=== PATIENT | female | born 1955 | race African-American/Black ===

== ENCOUNTER → 2016-12-09 | Outpatient (CLI) | payer OTHER ==
[2014-03-12 11:26] VITALS: BP 147/99
[2016-12-09 07:55] LABS: CALCIUM 9.8 mg/dL (8.5-10.1); GFR 68.4; POTASSIUM 3.8 mmol/L (3.5-5.1)
[2016-12-09 07:58] LABS: CHOLESTEROL/HDL RATIO 5.7
== END | disposition home or self-care (01) ==
LOC: LAB 06:27
PROVIDERS: ATTEND Family Medicine
DX: E11.9 Type 2 diabetes mellitus without complications (principal); E78.5 Hyperlipidemia, unspecified; E01.0 Iodine-deficiency related diffuse (endemic) goiter
CPT/HCPCS: 36415; 80048; 80061; 83036; 84443

== ENCOUNTER → 2017-04-13 | Outpatient (CLI) | payer OTHER ==
[2014-03-12 11:26] VITALS: BP 147/99
--- NOTE | 2017-04-13 16:03 | RAD ---
DATE: 04/13/2017 EXAM: DIGITAL SCREEN BILAT W/CAD HISTORY: Screening study. COMPARISON: 03/12/2014 and 03/04/2014 This study was interpreted with the benefit of Computerized Aided Detection (CAD). The breast parenchyma shows scattered fibroglandular densities. Breast parenchyma level B. FINDINGS: Digital MLO and CC mammograms of both breasts were obtained. Comparison studies are dated 03/04/2014 and 03/12/2014. The breast parenchyma is composed of scattered fibroglandular densities which can obscure a lesion on mammography (breast density code B). No spiculated mass is seen. No malignant appearing calcification or area of architectural distortion is noted. Benign-appearing calcifications are seen within both breasts. Since the previous examinations there has been no significant interval change. IMPRESSION: BI-RADS Category 1, negative. There is no mammographic evidence of malignancy. Routine yearly screening mammography is recommended for follow-up. BI-RADS CATEGORY: 1 NEGATIVE RECOMMENDED FOLLOW-UP: 12M 12 MONTH FOLLOW-UP PQRS compliance statement: Patient information was entered into a reminder system with a target due date 04/13/2018 for the next mammogram. Mammography is a sensitive method for finding small breast cancers, but it does not detect them all and is not a substitute for careful clinical examination. A negative mammogram does not negate a clinically suspicious finding and should not result in delay in biopsying a clinically suspicious abnormality. "Our facility is accredited by the [employer] Mammography Program."
== END | disposition home or self-care (01) ==
LOC: MAMMO 07:02
PROVIDERS: ATTEND Specialist
DX: Z12.31 Encounter for screening mammogram for malignant neoplasm of breast (principal); E11.9 Type 2 diabetes mellitus without complications
CPT/HCPCS: 36415; 82043; 83036; G0202; 77067

== ENCOUNTER 2017-04-30 07:42 | Inpatient (IN) | payer OTHER ==
[~2017-04-30] VITALS: Ht 170.2 cm; Wt 84.1 kg
--- NOTE | 2017-04-30 07:57 | EKG ---
[facility] [address] [place] [address] Test Date: 2017-04-30 Test Time: 07:46:53 Pat Name: REECE CAT Department: Room: Gender: F Human Projectile: : 1955 Requested By: TIGIST MARTINEZ Order Number: [id number] Reading MD: Hussein Liu Measurements Intervals [place] Rate: 58 P: 59 [place]: 186 QRS: 36 QRSD: 72 T: 43 QT: 408 QTc: 400 Interpretive Statements SINUS RHYTHM Electronically Signed On 05-01-2017 13:17:13 CDT by Hussein Liu
[2017-04-30 08:24] LABS: BASO # 0.1 x10^3/uL (0.0-0.2); BASO % 1 % (0-3); EOS % 2 % (0-3); HEMATOCRIT 39.4 % (36.0-47.0); HEMOGLOBIN 12.9 g/dL (12.0-15.5); LYMPH # 2.8 x10^3/uL (1.0-4.8); LYMPH % 35 % (24-48); MEAN CORPUSCULAR HEMOGLOBIN 28 pg (25-35); MEAN CORPUSCULAR HGB CONC 33 g/dL (31-37); MEAN CORPUSCULAR VOLUME 85 fL (79-100); MONO % 8 % (0-9); NEUT % 54 % (31-73); PLATELET COUNT 214 x10^3/uL (140-400); RED BLOOD COUNT 4.62 x10^6/uL (3.50-5.40); RED CELL DISTRIBUTION WIDTH 13.7 % (11.5-14.5)
--- NOTE | 2017-04-30 08:29 | RAD ---
Chest radiograph 04/30/2017 9:49 AM Indication: Syncope Comparison: None available Technique: Single portable upright frontal view of the chest is provided. Findings: Cardiomediastinal silhouette is within normal limits. No pleural effusions, pulmonary vascular congestion or pneumothorax. The lungs are clear. Osseous structures are normal. Impression: No acute cardiopulmonary process.
[2017-04-30 08:40] LABS: CALCIUM 9.2 mg/dL (8.5-10.1); GFR 68.4; POTASSIUM 3.7 mmol/L (3.5-5.1)
--- NOTE | 2017-04-30 08:45 | ED.ADGEN ---
Adult General Chief Complaint Chief Complaint: LOSS OF CONSCIOUSNESS HPI HPI Patient is a 61 year old woman, history of hypertension, hypercholesterolemia, type 2 diabetes mellitus that is diet controlled, who presents to the emergency department with report of syncope. 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 She states that she tried drinking some water, and then felt progressively more hot and lightheaded, and eventually dizzy as though the room is been around her. She states she sat down, but the symptoms did not saji. She states that she then attempted to stand up to move closer to the other drilling rig operator, at that point she had a single episode where she fell forward, and was ascending a chair. Patient states that she was out for only a few seconds at best, states that she then vomited, and felt better after she vomited. No blood or bile in emesis. Patient denies any chest pain, shortness breath, any fevers or chills preceding this, any abdominal pain, any focal weakness, numbness, tingling, vision changes , headache or similar symptoms previously. She denies any medication changes, missed doses of medication, or recent adjustments, no swelling extremities, no history of DVT or PE in herself or family members, no recent travel or surgery. Patient states that she has been compliant all medications, denies any ingestions or sick contacts or exposures. Review of Systems Review of Systems Constitutional: Denies fever or chills. [] Eyes: Denies change in visual acuity. [] HENT: Denies nasal congestion or sore throat. [] Respiratory: Denies cough or shortness of breath. [] Cardiovascular: Denies chest pain or edema. [] GI: Denies abdominal pain, bloody stools or diarrhea. [] Dizziness associated with nausea and vomiting. Syncope. : Denies dysuria. [] Musculoskeletal: Denies back pain or joint pain. [] Integument: Denies rash. [] Neurologic: Denies headache, focal weakness or sensory changes. Syncope, dizziness, nausea and vomiting. Endocrine: Denies polyuria or polydipsia. [] Lymphatic: Denies swollen glands. [] Psychiatric: Denies depression or anxiety. Current Medications Current Medications Current Medications Medications (Trade) Dose Ordered Sig/Kavitha Start Time Stop Time Status Last Admin Dose Admin Iohexol (Omnipaque 300 Mg/ml) 75 ml STK-MED ONCE 04/30/17 09:55 04/30/17 09:56 DC Allergies Allergies Allergies Coded Allergies Type Severity Reaction Last Updated Verified No Known Drug Allergies 03/12/14 No Physical Exam Physical Exam Constitutional: Well developed, well nourished, no acute distress, non-toxic appearance. [] HENT: Normocephalic, atraumatic, bilateral external ears normal, oropharynx moist, no oral exudates, nose normal. [] Eyes: PERRLA, EOMI, conjunctiva normal, no discharge. [] Neck: Normal range of motion, no tenderness, supple, no stridor. [] Cardiovascular:Heart rate regular rhythm, no murmur, S1, S2, rubs or gallops. [] Lungs & Thorax: Bilateral breath sounds clear to auscultation, no wheezing, rhonchi, rales. No chest wall crepitus or tenderness. Abdomen: Bowel sounds normal, soft, no tenderness, no masses, no pulsatile masses. [] Skin: Warm, dry, no erythema, no rash. [] Back: No tenderness, no CVA tenderness. [] Extremities: No tenderness, no cyanosis, no clubbing, ROM intact, no edema. Negative Homans sign. [] Neurologic: Alert and oriented X 3, normal motor function, normal sensory function, no focal deficits noted. 5 out of 5 strength in all extremities, no focal deficits. Psychologic: Affect normal, judgement normal, mood normal. [] Current Patient Data Vital Signs Vital Signs Date Time Temp Pulse Resp B/P (MAP) Pulse Ox O2 Delivery O2 Flow Rate FiO2 04/30/17 09:30 62 16 99 04/30/17 07:42 97.6 136/86 (103) Room Air 97.6 Lab Values Laboratory Tests Test 04/30/17 07:57 04/30/17 08:05 04/30/17 08:15 04/30/17 08:30 Glucose (Fingerstick) 134 mg/dL (70-99) H White Blood Count 8.0 x10^3/uL (4.0-11.0) Red Blood Count 4.62 x10^6/uL (3.50-5.40) Hemoglobin 12.9 g/dL (12.0-15.5) Hematocrit 39.4 % (36.0-47.0) Mean Corpuscular Volume 85 fL (79-100) Mean Corpuscular Hemoglobin 28 pg (25-35) Mean Corpuscular Hemoglobin Concent 33 g/dL (31-37) Red Cell Distribution Width 13.7 % (11.5-14.5) Platelet Count 214 x10^3/uL (140-400) Neutrophils (%) (Auto) 54 % (31-73) Lymphocytes (%) (Auto) 35 % (24-48) Monocytes (%) (Auto) 8 % (0-9) Eosinophils (%) (Auto) 2 % (0-3) Basophils (%) (Auto) 1 % (0-3) Neutrophils # (Auto) 4.3 x10^3uL (1.8-7.7) Lymphocytes # (Auto) 2.8 x10^3/uL (1.0-4.8) Monocytes # (Auto) 0.7 x10^3/uL (0.0-1.1) Eosinophils # (Auto) 0.2 x10^3/uL (0.0-0.7) Basophils # (Auto) 0.1 x10^3/uL (0.0-0.2) D-Dimer (Angelic) 0.61 ug/mlFEU (0.00-0.50) H Sodium Level 141 mmol/L (136-145) Potassium Level 3.7 mmol/L (3.5-5.1) Chloride Level 105 mmol/L (98-107) Carbon Dioxide Level 28 mmol/L (21-32) Anion Gap 8 (6-14) Blood Urea Nitrogen 18 mg/dL (7-20) Creatinine 1.0 mg/dL (0.6-1.0) Estimated GFR (Cockcroft-Gault) 68.4 BUN/Creatinine Ratio 18 (6-20) Glucose Level 139 mg/dL (70-99) H Calcium Level 9.2 mg/dL (8.5-10.1) Total Bilirubin 0.2 mg/dL (0.2-1.0) Aspartate Amino Transferase (AST) 15 U/L (15-37) Alanine Aminotransferase (ALT) 28 U/L (14-59) Alkaline Phosphatase 95 U/L (46-116) Troponin I Quantitative 0.090 ng/mL (0.000-0.055) YH-Zna-E-Type Natriuretic Peptide 65 pg/mL (0-124) Total Protein 7.5 g/dL (6.4-8.2) Albumin 3.8 g/dL (3.4-5.0) Albumin/Globulin Ratio 1.0 (1.0-1.7) Lactic Acid Level 0.9 mmol/L (0.4-2.0) Prothrombin Time 12.5 SEC (11.7-14.0) Prothrombin Time INR 1.0 (0.8-1.1) PTT 30 SEC (24-38) Test 04/30/17 09:45 Urine Collection Type Void Urine Color Yellow Urine Clarity Cloudy Urine pH 6.0 Urine Specific [place] 1.020 Urine Protein Negative mg/dL (NEG-TRACE) Urine Glucose (UA) Negative mg/dL (NEG) Urine Ketones (Stick) Negative mg/dL (NEG) Urine Blood Negative (NEG) Urine Nitrite Negative (NEG) Urine Bilirubin Negative (NEG) Urine Urobilinogen Dipstick 1.0 mg/dL (0.2 mg/dL) Urine Leukocyte Esterase Negative (NEG) Urine RBC 0 /HPF (0-2) Urine WBC 1-4 /HPF (0-4) Urine Squamous Epithelial Cells Mod /LPF Urine Bacteria Moderate /HPF (0-FEW) Urine Mucus Mod /LPF Laboratory Tests 04/30/17 08:05 Laboratory Tests 04/30/17 08:05 EKG EKG EC: Sinus rhythm, upright axis, QTC of 400, AL 186, QRS of 72, [address] elevation noted in the septal leads, no reciprocal changes noted, abnormal ECG, does not meet STEMI criteria. As interpreted by me. Radiology/Procedures Radiology/Procedures [][facility] [address] [place], [place] [id number] IMAGING REPORT Signed PATIENT: REECE CAT ACCOUNT: [id number] : 1955 LOCATION: ER AGE: 61 SEX: F EXAM STATUS: REG ER ORD. PHYSICIAN: TIGIST MARTINEZ DO REASON: Syncope PROCEDURE: CT HEAD WO CONTRAST CT head without contrast 04/30/2017 at 1008 hours Indication: Syncope Comparison: None available Technique: Multiple axial noncontrast CT images of the head were obtained from the skull base through the vertex. Findings: The ventricles, sulci and basal cisterns are within normal limits. Low-attenuation in the periventricular white matter is compatible with chronic small vessel ischemic changes. Remote lacunar infarct identified in the right cerebellum. Celaya-white matter differentiation is normal. There is no acute intracranial hemorrhage. There is no mass, mass effect or midline shift. Posterior fossa is within normal limits. Sellar and suprasellar cistern appear normal. Vascular calcifications are identified involving the cavernous segments of the internal carotid arteries. Orbits are normal in appearance. Paranasal sinuses are well aerated. Mastoid air cells are well aerated. Scalp and calvaria are normal. Impression: There is no acute intracranial hemorrhage. Mild chronic small vessel ischemic changes are noted in the periventricular white matter. Remote lacunar infarct identified in the right cerebellum. PQRS Compliance Statement: One or more of the following individualized dose reduction techniques were utilized for this examination: 1. Automated exposure control 2. Adjustment of the mA and/or kV according to patient size 3. Use of iterative reconstruction technique DICTATED and SIGNED BY: STARLA LAZO MD DATE: 04/30/17 1029 CC: QUINCY BAUTISTA MD; TIGIST MARTINEZ DO ~ Impressions: [facility] [address] [place] [address] IMAGING REPORT Signed PATIENT: REECE CAT ACCOUNT: [id number] : 1955 LOCATION: ER AGE: 61 SEX: F EXAM STATUS: REG ER ORD. PHYSICIAN: TIGIST MARTINEZ DO REASON: Syncope PROCEDURE: PORTABLE CHEST 1V Chest radiograph 04/30/2017 9:49 AM Indication: Syncope Comparison: None available Technique: Single portable upright frontal view of the chest is provided. Findings: Cardiomediastinal silhouette is within normal limits. No pleural effusions, pulmonary vascular congestion or pneumothorax. The lungs are clear. Osseous structures are normal. Impression: No acute cardiopulmonary process. DICTATED and SIGNED BY: STARLA LAZO MD DATE: 04/30/17825 CC: TIGIST MARTINEZ DO; UNKNOWN PCP NAME ~ [facility] [address] [place] [address] IMAGING REPORT Signed PATIENT: REECE CAT ACCOUNT: [id number] : 1955 LOCATION: ER AGE: 61 SEX: F EXAM STATUS: REG ER ORD. PHYSICIAN: TIGIST MARTINEZ DO REASON: Syncope/elevated ddimer PROCEDURE: CT ANGIOGRAPHY CHEST PQRS Compliance St with contrast 04/30/2017 at 1012 hours Indication: Syncope, elevated d-dimer Comparison: None available Technique: Multiple axial CT images of the chest were obtained after the administration of Omnipaque 300 75 mL intravenously. Coronal and sagittal reformats are provided. Maximum intensity projected images of the pulmonary vasculature are provided. Findings: Thyroid gland is enlarged with a peripherally calcified nodule measuring 18 mm. There are no pathologically enlarged lymph nodes in the axilla, mediastinal or hilar regions. Heart size is within normal limits. Thoracic aorta is normal in course and caliber. No pericardial effusion. There is adequate opacification of pulmonary arterial system. No filling defects are identified to suggest an acute pulmonary embolism. There are no suspicious pulmonary nodules. No pulmonary infiltrates. No pulmonary vascular congestion, pleural effusions or pneumothorax. Visualized portions of the upper abdomen are within normal limits. No suspicious osseous lesions are identified. Impression: 1. No acute pulmonary emphysema is identified. 2. Enlarged thyroid gland with a peripherally calcified 18 mm nodule in the right thyroid gland. Further evaluation with thyroid ultrasound would be of benefit. PQRS Compliance Statement: One or more of the following individualized dose reduction techniques were utilized for this examination: 1. Automated exposure control 2. Adjustment of the mA and/or kV according to patient size 3. Use of iterative reconstruction technique DICTATED and SIGNED BY: STARLA LAZO MD DATE: 04/30/171034 CC: QUINCY BAUTISTA MD; TIGIST MARTINEZ DO ~ Course & Med Decision Making Course & Med Decision Making Pertinent Labs and Imaging studies reviewed. (See chart for details) Patient states that she is feeling much better at this time the emergency department, syncope versus near-syncope, with an episode of emesis. No chest pain or shortness of breath. No focal deficits. Initial ECG does not reveal any evidence of reciprocal changes, does have mild ST elevation noted in the anterior septal leads, initial troponin is 0.090. D-dimer is elevated at 0.61, CT angios the chest obtained after discussion with patient regarding concern for possible PE as cause, the CT was unremarkable as was a CT of the head. Patient received a full dose of oral aspirin. I did discuss findings as above with Dr. Bautista, the patient's primary care provider, patient accepted his service as a full admission to the cardiac telemetry floor, with consultation placed for Dr. Umaña of cardiology. Patient is agreeable for admission to the hospital for further evaluation and monitoring. She remains asymptomatic resting comfortably in the emergency department. Findings as above discussed with Dr. Umaña, who will evaluate the patient on the floor. Patient was also initiated on heparin drip, she has no contraindications. Dragon Disclaimer Dragon Disclaimer This electronic medical record was generated, in whole or in part, using a voice recognition dictation system. Departure Impression: Primary Impression: NSTEMI (non-ST elevation myocardial infarction) Additional Impression: Syncope Disposition: ADMITTED INPATIENT Admitting Physician: Quincy Bautista Condition: IMPROVED Problem Qualifiers TIGIST MARTINEZ DO Apr 30, 2017 08:45
[2017-04-30 08:58] LABS: ALBUMIN 3.8 g/dL (3.4-5.0); TOTAL BILIRUBIN 0.2 mg/dL (0.2-1.0); TOTAL PROTEIN 7.5 g/dL (6.4-8.2)
[2017-04-30 09:54] LABS: PROTHROMBIN TIME PATIENT 12.5 SEC (11.7-14.0)
[2017-04-30] MEDS ORDERED: IOHEXOL 300 MG/ML 75 ML VIAL ONE (09:55)
[2017-04-30] MEDS ORDERED: IOHEXOL 300 MG/ML 75 ML VIAL IV ONE (10:00)
[2017-04-30 10:04] LABS: BILIRUBIN,URINE NEGATIVE (NEG); GLUCOSE,URINE NEGATIVE (NEG); NITRITE,URINE NEGATIVE (NEG); PROTEIN,URINE NEGATIVE (NEG-TRACE)
[2017-04-30 10:21] LABS: BACTERIA,URINE MODERATE /HPF (0-FEW); RBC,URINE 0 /HPF (0-2); SQUAMOUS EPITHELIAL CELL,UR MOD /LPF
--- NOTE | 2017-04-30 10:34 | RAD ---
CT head without contrast 04/30/2017 at 1008 hours Indication: Syncope Comparison: None available Technique: Multiple axial noncontrast CT images of the head were obtained from the skull base through the vertex. Findings: The ventricles, sulci and basal cisterns are within normal limits. Low-attenuation in the periventricular white matter is compatible with chronic small vessel ischemic changes. Remote lacunar infarct identified in the right cerebellum. Celaya-white matter differentiation is normal. There is no acute intracranial hemorrhage. There is no mass, mass effect or midline shift. Posterior fossa is within normal limits. Sellar and suprasellar cistern appear normal. Vascular calcifications are identified involving the cavernous segments of the internal carotid arteries. Orbits are normal in appearance. Paranasal sinuses are well aerated. Mastoid air cells are well aerated. Scalp and calvaria are normal. Impression: There is no acute intracranial hemorrhage. Mild chronic small vessel ischemic changes are noted in the periventricular white matter. Remote lacunar infarct identified in the right cerebellum. PQRS Compliance Statement: One or more of the following individualized dose reduction techniques were utilized for this examination: 1. Automated exposure control 2. Adjustment of the mA and/or kV according to patient size 3. Use of iterative reconstruction technique
--- NOTE | 2017-04-30 10:41 | RAD ---
PQRS Compliance St with contrast 04/30/2017 at 1012 hours Indication: Syncope, elevated d-dimer Comparison: None available Technique: Multiple axial CT images of the chest were obtained after the administration of Omnipaque 300 75 mL intravenously. Coronal and sagittal reformats are provided. Maximum intensity projected images of the pulmonary vasculature are provided. Findings: Thyroid gland is enlarged with a peripherally calcified nodule measuring 18 mm. There are no pathologically enlarged lymph nodes in the axilla, mediastinal or hilar regions. Heart size is within normal limits. Thoracic aorta is normal in course and caliber. No pericardial effusion. There is adequate opacification of pulmonary arterial system. No filling defects are identified to suggest an acute pulmonary embolism. There are no suspicious pulmonary nodules. No pulmonary infiltrates. No pulmonary vascular congestion, pleural effusions or pneumothorax. Visualized portions of the upper abdomen are within normal limits. No suspicious osseous lesions are identified. Impression: 1. No acute pulmonary emphysema is identified. 2. Enlarged thyroid gland with a peripherally calcified 18 mm nodule in the right thyroid gland. Further evaluation with thyroid ultrasound would be of benefit. PQRS Compliance Statement: One or more of the following individualized dose reduction techniques were utilized for this examination: 1. Automated exposure control 2. Adjustment of the mA and/or kV according to patient size 3. Use of iterative reconstruction technique
[2017-04-30] MEDS ORDERED: ASPIRIN 325 MG TABLET PO ONE (11:00)
[2017-04-30 11:30] VITALS: BP 156/98
[2017-04-30] MEDS: INSULIN ASPART 300 UNITS/3 ML INSULN.PEN SQ SCH ×2 (12:00→17:00)
[2017-04-30] MEDS ORDERED: MORPHINE SULFATE 2 MG/ML DISP.SYRIN. IV PRN (12:00)
[2017-04-30] MEDS ORDERED: NITROGLYCERIN SUBLINGUAL 0.4 MG BOTTLE OF 25. SL PRN (12:00)
[2017-04-30] MEDS ORDERED: DEXTROSE 50% 25 GM / 50ML DISP.SYRIN. IV PRN (12:00)
[2017-04-30] MEDS ORDERED: ONDANSETRON PF 4 MG/2 ML VIAL. IV PRN (12:00)
[2017-04-30] MEDS ORDERED: HEPARIN 25,000UTS/500ML PREMIX 500 ML IV PRN (12:45)
[2017-04-30] MEDS ORDERED: HEPARIN for IV BOLUS 10,000 UNIT/10 ML VIAL. IV ONE (12:45)
[2017-04-30] MEDS ORDERED: HEPARIN for IV BOLUS 10,000 UNIT/10 ML VIAL. IV PRN (12:45)
[2017-04-30] MEDS ORDERED: ASPI325T8 PO (12:49)
[2017-04-30] MEDS ORDERED: MULT-658 PO (12:49)
[2017-04-30] MEDS ORDERED: ATOR10TA60 PO (12:49)
[2017-04-30] MEDS ORDERED: AMLO5TAB2 PO (12:49)
[2017-04-30] MEDS ORDERED: BISO1TAB10 PO (12:49)
[2017-04-30 13:15] LABS: HEMATOCRIT 39.5 % (36.0-47.0); RED BLOOD COUNT 4.6 x10^6/uL (3.50-5.40); RED CELL DISTRIBUTION WIDTH 13.6 % (11.5-14.5)
--- NOTE | 2017-04-30 13:16 | PDOC1 ---
History and Physical Date of Admission Date of Admission 04/30/17 Identification/Chief Complaint Chief Complaint nausea/ syncope Problems: Source Source: Chart review, Patient History of Present Illness History of Present Illness Patient is a 61 year old woman, history of hypertension, hypercholesterolemia, type 2 diabetes mellitus that is diet controlled, who presents to the emergency department with report of syncope. 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 She tried drinking some water, and then felt progressively more hot and lightheaded, and eventually dizzy as though the room is spinning around her. She states she sat down, but the symptoms did not saji. She states that she then attempted to stand up to move closer to the other knurling machine operator, at that point she had a single episode where she fell forward, and was ascending a chair. Patient states that she was out for only a few seconds at best, states that she then vomited, and felt better after she vomited. No blood or bile in emesis. Patient denies any chest pain, shortness breath, any fevers or chills preceding this, any abdominal pain, any focal weakness, numbness, tingling, vision changes, headache , she had symptoms of hot flash previously but nothing like this , she had some upper back pain yesterday but resolved, she was at work last night till 11:)) PM no alcohol, has not eaten anything yet when this happened , She denies any medication changes, missed doses of medication, or recent adjustments , no swelling extremities, no history of DVT or PE in herself or family members , no recent travel or surgery. Patient states that she has been compliant all medications, denies any ingestions or sick contacts or exposures. Past Medical History Cardiovascular: HTN, Hyperlipidemia Pulmonary: No pertinent hx GI: No pertinent hx Heme/Onc: No pertinent hx Hepatobiliary: No pertinent hx Psych: No pertinent hx Rheumatologic: No pertinent hx Infectious disease: No pertinent hx ENT: No pertinent hx Renal/: No pertinent hx Endocrine: Diabetes Dermatology: No pertinent hx Past Surgical History Past Surgical History: No pertinent history Family History Family History: Diabetes, Hypertension Social History Smoke: No ALCOHOL: rare Drugs: None Current Problem List Problem List Problems Medical Problems: (1) NSTEMI (non-ST elevation myocardial infarction) Status: Acute Current Medications Current Medications Current Medications Medications (Trade) Dose Ordered Sig/Kavitha Start Time Stop Time Status Last Admin Dose Admin Acetaminophen (Tylenol) 650 mg PRN Q4HRS PRN 04/30/17 12:00 05/01/17 11:59 Aspirin (Janice Aspirin) 325 mg 1X ONCE 04/30/17 11:00 04/30/17 11:01 DC 04/30/17 11:00 325 MG Dextrose (Dextrose 50%-Water Syringe) 12.5 gm PRN Q15MIN PRN 04/30/17 12:00 Heparin Sodium (Porcine) (Heparin Sodium) 2,100 unit PRN Q6HRS PRN 04/30/17 12:45 Heparin Sodium/ Dextrose 500 ml @ 0 mls/hr CONT PRN 04/30/17 12:45 Insulin Aspart (NovoLOG) 0-5 UNITS TIDWMEALS 04/30/17 12:00 Iohexol (Omnipaque 300 Mg/ml) 75 ml STK-MED ONCE 04/30/17 09:55 04/30/17 09:56 DC Morphine Sulfate 2 mg PRN Q2HR PRN 04/30/17 12:00 05/01/17 11:59 Nitroglycerin (Nitrostat) 0.4 mg PRN Q5MIN PRN 04/30/17 12:00 05/01/17 11:59 Ondansetron HCl (Zofran) 4 mg PRN Q8HRS PRN 04/30/17 12:00 05/01/17 11:59 Allergies Allergies Allergies Coded Allergies Type Severity Reaction Last Updated Verified No Known Drug Allergies 03/12/14 No ROS Review of System CONSTITUTIONAL: No fever or chills EYES: No recent changes SKIN: No rash or itching CARDIOVASCULAR: No chest pain, syncope, palpitations, or edema RESPIRATORY: No SOB or cough GASTROINTESTINAL: + nausea, no vomiting or abdominal pain NEUROLOGICAL: No headaches or weakness + dizziness ENDOCRINE: No cold or heat intolerance but having hot flashes GENITOURINARY: No urgency or frequency of urination MUSCULOSKELETAL: some upper back pain no other joint pain LYMPHATICS: No enlarged lymph nodes PSYCHIATRIC: No anxiety or depression Physical Exam Physical Exam GEN.: No apparent distress. Alert and oriented. HEENT: Head is normocephalic, atraumatic NECK: Supple. LUNGS: Clear to auscultation. HEART: RRR, S1, S2 present. Peripheral pulses intact ABDOMEN: Soft, nontender. Positive bowel sounds. EXTREMITIES: Without any cyanosis. NEUROLOGIC: Normal speech, normal tone PSYCHIATRIC: Normal affect, normal mood. SKIN: No ulcerations Vitals Vitals Vital Signs Date Time Temp Pulse Resp B/P (MAP) Pulse Ox O2 Delivery O2 Flow Rate FiO2 04/30/17 11:30 97.7 65 20 156/98 (117) 100 Room Air 97.7 Labs Labs Laboratory Tests Test 04/30/17 07:57 04/30/17 08:05 04/30/17 08:15 04/30/17 08:30 Glucose (Fingerstick) 134 mg/dL (70-99) White Blood Count 8.0 x10^3/uL (4.0-11.0) Red Blood Count 4.62 x10^6/uL (3.50-5.40) Hemoglobin 12.9 g/dL (12.0-15.5) Hematocrit 39.4 % (36.0-47.0) Mean Corpuscular Volume 85 fL (79-100) Mean Corpuscular Hemoglobin 28 pg (25-35) Mean Corpuscular Hemoglobin Concent 33 g/dL (31-37) Red Cell Distribution Width 13.7 % (11.5-14.5) Platelet Count 214 x10^3/uL (140-400) Neutrophils (%) (Auto) 54 % (31-73) Lymphocytes (%) (Auto) 35 % (24-48) Monocytes (%) (Auto) 8 % (0-9) Eosinophils (%) (Auto) 2 % (0-3) Basophils (%) (Auto) 1 % (0-3) Neutrophils # (Auto) 4.3 x10^3uL (1.8-7.7) Lymphocytes # (Auto) 2.8 x10^3/uL (1.0-4.8) Monocytes # (Auto) 0.7 x10^3/uL (0.0-1.1) Eosinophils # (Auto) 0.2 x10^3/uL (0.0-0.7) Basophils # (Auto) 0.1 x10^3/uL (0.0-0.2) D-Dimer (Angelic) 0.61 ug/mlFEU (0.00-0.50) Sodium Level 141 mmol/L (136-145) Potassium Level 3.7 mmol/L (3.5-5.1) Chloride Level 105 mmol/L (98-107) Carbon Dioxide Level 28 mmol/L (21-32) Anion Gap 8 (6-14) Blood Urea Nitrogen 18 mg/dL (7-20) Creatinine 1.0 mg/dL (0.6-1.0) Estimated GFR (Cockcroft-Gault) 68.4 BUN/Creatinine Ratio 18 (6-20) Glucose Level 139 mg/dL (70-99) Calcium Level 9.2 mg/dL (8.5-10.1) Total Bilirubin 0.2 mg/dL (0.2-1.0) Aspartate Amino Transf (AST/SGOT) 15 U/L (15-37) Alanine Aminotransferase (ALT/SGPT) 28 U/L (14-59) Alkaline Phosphatase 95 U/L (46-116) Troponin I Quantitative 0.090 ng/mL (0.000-0.055) TR-Vnn-W-Type Natriuretic Peptide 65 pg/mL (0-124) Total Protein 7.5 g/dL (6.4-8.2) Albumin 3.8 g/dL (3.4-5.0) Albumin/Globulin Ratio 1.0 (1.0-1.7) Lactic Acid Level 0.9 mmol/L (0.4-2.0) Prothrombin Time 12.5 SEC (11.7-14.0) Prothromb Time International Ratio 1.0 (0.8-1.1) Activated Partial Thromboplast Time 30 SEC (24-38) Test 04/30/17 09:45 Urine Collection Type Void Urine Color Yellow Urine Clarity Cloudy Urine pH 6.0 Urine Specific [place] 1.020 Urine Protein Negative mg/dL (NEG-TRACE) Urine Glucose (UA) Negative mg/dL (NEG) Urine Ketones (Stick) Negative mg/dL (NEG) Urine Blood Negative (NEG) Urine Nitrite Negative (NEG) Urine Bilirubin Negative (NEG) Urine Urobilinogen Dipstick 1.0 mg/dL (0.2 mg/dL) Urine Leukocyte Esterase Negative (NEG) Urine RBC 0 /HPF (0-2) Urine WBC 1-4 /HPF (0-4) Urine Squamous Epithelial Cells Mod /LPF Urine Bacteria Moderate /HPF (0-FEW) Urine Mucus Mod /LPF Laboratory Tests Test 04/30/17 07:57 04/30/17 08:05 04/30/17 08:15 04/30/17 08:30 Glucose (Fingerstick) 134 mg/dL (70-99) White Blood Count 8.0 x10^3/uL (4.0-11.0) Red Blood Count 4.62 x10^6/uL (3.50-5.40) Hemoglobin 12.9 g/dL (12.0-15.5) Hematocrit 39.4 % (36.0-47.0) Mean Corpuscular Volume 85 fL (79-100) Mean Corpuscular Hemoglobin 28 pg (25-35) Mean Corpuscular Hemoglobin Concent 33 g/dL (31-37) Red Cell Distribution Width 13.7 % (11.5-14.5) Platelet Count 214 x10^3/uL (140-400) Neutrophils (%) (Auto) 54 % (31-73) Lymphocytes (%) (Auto) 35 % (24-48) Monocytes (%) (Auto) 8 % (0-9) Eosinophils (%) (Auto) 2 % (0-3) Basophils (%) (Auto) 1 % (0-3) Neutrophils # (Auto) 4.3 x10^3uL (1.8-7.7) Lymphocytes # (Auto) 2.8 x10^3/uL (1.0-4.8) Monocytes # (Auto) 0.7 x10^3/uL (0.0-1.1) Eosinophils # (Auto) 0.2 x10^3/uL (0.0-0.7) Basophils # (Auto) 0.1 x10^3/uL (0.0-0.2) D-Dimer (Angelic) 0.61 ug/mlFEU (0.00-0.50) Sodium Level 141 mmol/L (136-145) Potassium Level 3.7 mmol/L (3.5-5.1) Chloride Level 105 mmol/L (98-107) Carbon Dioxide Level 28 mmol/L (21-32) Anion Gap 8 (6-14) Blood Urea Nitrogen 18 mg/dL (7-20) Creatinine 1.0 mg/dL (0.6-1.0) Estimated GFR (Cockcroft-Gault) 68.4 BUN/Creatinine Ratio 18 (6-20) Glucose Level 139 mg/dL (70-99) Calcium Level 9.2 mg/dL (8.5-10.1) Total Bilirubin 0.2 mg/dL (0.2-1.0) Aspartate Amino Transf (AST/SGOT) 15 U/L (15-37) Alanine Aminotransferase (ALT/SGPT) 28 U/L (14-59) Alkaline Phosphatase 95 U/L (46-116) Troponin I Quantitative 0.090 ng/mL (0.000-0.055) NA-Vee-N-Type Natriuretic Peptide 65 pg/mL (0-124) Total Protein 7.5 g/dL (6.4-8.2) Albumin 3.8 g/dL (3.4-5.0) Albumin/Globulin Ratio 1.0 (1.0-1.7) Lactic Acid Level 0.9 mmol/L (0.4-2.0) Prothrombin Time 12.5 SEC (11.7-14.0) Prothromb Time International Ratio 1.0 (0.8-1.1) Activated Partial Thromboplast Time 30 SEC (24-38) Test 04/30/17 09:45 Urine Collection Type Void Urine Color Yellow Urine Clarity Cloudy Urine pH 6.0 Urine Specific [place] 1.020 Urine Protein Negative mg/dL (NEG-TRACE) Urine Glucose (UA) Negative mg/dL (NEG) Urine Ketones (Stick) Negative mg/dL (NEG) Urine Blood Negative (NEG) Urine Nitrite Negative (NEG) Urine Bilirubin Negative (NEG) Urine Urobilinogen Dipstick 1.0 mg/dL (0.2 mg/dL) Urine Leukocyte Esterase Negative (NEG) Urine RBC 0 /HPF (0-2) Urine WBC 1-4 /HPF (0-4) Urine Squamous Epithelial Cells Mod /LPF Urine Bacteria Moderate /HPF (0-FEW) Urine Mucus Mod /LPF VTE Prophylaxis Ordered VTE Prophylaxis Devices: Yes VTE Pharmacological Prophylaxi: Yes Assessment/Plan Assessment/Plan 1- Syncope and dizziness episode 2-elevated troponin , cardiology consult and series enzymes 3-borderline DM 4- HTN 5 HLD GERALDO DEGROOT MD Apr 30, 2017 13:16
--- NOTE | 2017-04-30 14:58 | PDOC2 ---
CONSULT Date of Consult Date of Consult DATE: 04/30/17 TIME: 14:48 Reason for Consult Reason for Consult: Syncope Referring Physician Referring Physician: Dr. 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 She has a known history of hypertension, hyperlipidemia, and diet controlled diabetes. She denies any previous heart problems. The patient has had some episodes recently where she would become lightheaded but it would go away if she just sat down and rested and drank some water. Yesterday she worked a full day. And this morning the patient came to work. While she was standing by the clock she started feeling lightheaded and had some nausea this gradually progressed and she tried to drink some water but could not and when she went in to her work area she went down and had loss of consciousness that was witnessed by her coworker. There was no seizure activity. The patient denies feeling any palpitations she just felt weak and dizzy and then passed out. She came back spontaneously shortly thereafter. No accurate timing was done. The patient did not have any chest pains before or after the episode. She was taken to the emergency room where an initial workup was done and she is still denies any chest pains, the EKG did not show any acute ST segment abnormality but there was mild elevation of the troponin. At the time that I saw the patient she was feeling fine. Past Medical History Cardiovascular: HTN, Hyperlipidemia Pulmonary: No pertinent hx GI: No pertinent hx Heme/Onc: No pertinent hx Hepatobiliary: No pertinent hx Psych: No pertinent hx Rheumatologic: No pertinent hx Infectious disease: No pertinent hx ENT: No pertinent hx Renal/: No pertinent hx Endocrine: Diabetes Dermatology: No pertinent hx Past Surgical History Past Surgical History: No pertinent history Family History Family History: Diabetes, Hypertension Social History No ALCOHOL: rare Drugs: None Current Problem List Problem List Problems Medical Problems: (1) NSTEMI (non-ST elevation myocardial infarction) Status: Acute Current Medications Current Medications Current Medications Iohexol (Omnipaque 300 Mg/ml) 75 ml 1X ONCE IV Last administered on 04/30/17t 10:08; Start 04/30/17 at 10:00; Stop 04/30/17 at 10:01; Status DC Iohexol (Omnipaque 300 Mg/ml) 75 ml STK-MED ONCE .ROUTE ; Start 04/30/17 at 09: 55; Stop 04/30/17 at 09:56; Status DC Aspirin (Janice Aspirin) 325 mg 1X ONCE PO Last administered on 04/30/17t 11:00 ; Start 04/30/17 at 11:00; Stop 04/30/17 at 11:01; Status DC Ondansetron HCl (Zofran) 4 mg PRN Q8HRS PRN IV NAUSEA/VOMITING; Start 04/30/17 at 12:00; Stop 05/01/17 at 11:59 Morphine Sulfate 2 mg PRN Q2HR PRN IV PAIN; Start 04/30/17 at 12:00; Stop 05/01 at 11:59 Acetaminophen (Tylenol) 650 mg PRN Q4HRS PRN PO FEVER; Start 04/30/17 at 12:00 ; Stop 05/01/17 at 11:59 Nitroglycerin (Nitrostat) 0.4 mg PRN Q5MIN PRN SL CHEST PAIN; Start 04/30/17 at 12:00; Stop 05/01/17 at 11:59 Insulin Aspart (NovoLOG) 0-5 UNITS TIDWMEALS SQ ; Start 04/30/17 at 12:00 Dextrose (Dextrose 50%-Water Syringe) 12.5 gm PRN Q15MIN PRN IV SEE COMMENTS; Start 04/30/17 at 12:00 Heparin Sodium (Porcine) (Heparin Sodium) 4,000 unit 1X ONCE IV ; Start at 12:45; Stop 04/30/17 at 12:48; Status DC Heparin Sodium/ Dextrose 500 ml @ 0 mls/hr CONT PRN IV SEE I/O RECORD; Start at 12:45 Heparin Sodium (Porcine) (Heparin Sodium) 2,100 unit PRN Q6HRS PRN IV FOR UFH LEVEL LESS THAN 0.2; Start 04/30/17 at 12:45 Amlodipine Besylate (Norvasc) 5 mg DAILY PO ; Start 05/01/17 at 09:00 Aspirin (Janice Aspirin) 325 mg DAILYWBKFT PO ; Start 05/01/17 at 08:00 Atorvastatin Calcium (Lipitor) 10 mg HS PO ; Start 04/30/17 at 21:00 Atenolol (Tenormin) 25 mg DAILY PO ; Start 05/01/17 at 09:00 Hydrochlorothiazide (Hydrodiuril) 6.25 mg DAILY PO ; Start 05/01/17 at 09:00 Active Scripts Active Reported Centrum Silver Tablet (Multivits-Min/Fa/Lycopene/Lut) 1 Each Tablet 1 Each PO Atorvastatin Calcium 10 Mg Tablet 10 Mg PO HS Bisoprolol-Hctz 2.5-6.25 Mg Tb (Bisoprolol Fumarate/Hctz) 1 Each Tablet 1 Each PO DAILY Amlodipine Besylate 5 Mg Tablet 5 Mg PO DAILY Aspirin 325 Mg Tablet 1 Tab PO DAILY Allergies Allergies: Coded Allergies: No Known Drug Allergies (Unverified , 03/12/14) Physical Exam General: Alert, Oriented X3, Cooperative HEENT: Atraumatic, PERRLA, Other (normal bruits, carotid massage was done and it was negative on both sides.) Lungs: Clear to auscultation Heart: Regular rate, Normal S1, Normal S2, No murmurs Abdomen: Normal bowel sounds, Soft Extremities: No clubbing, No edema Neuro: Normal speech, Cranial nerves 3-12 NL Psych/Mental Status: Mental status NL Vitals VITALS Vital Signs Date Time Temp Pulse Resp B/P (MAP) Pulse Ox O2 Delivery O2 Flow Rate FiO2 04/30/17 11:30 97.7 65 20 156/98 (117) 100 Room Air 97.7 Labs Labs Laboratory Tests Test 04/30/17 07:57 04/30/17 08:05 04/30/17 08:15 04/30/17 08:30 Glucose (Fingerstick) 134 mg/dL (70-99) White Blood Count 8.0 x10^3/uL (4.0-11.0) Red Blood Count 4.62 x10^6/uL (3.50-5.40) Hemoglobin 12.9 g/dL (12.0-15.5) Hematocrit 39.4 % (36.0-47.0) Mean Corpuscular Volume 85 fL (79-100) Mean Corpuscular Hemoglobin 28 pg (25-35) Mean Corpuscular Hemoglobin Concent 33 g/dL (31-37) Red Cell Distribution Width 13.7 % (11.5-14.5) Platelet Count 214 x10^3/uL (140-400) Neutrophils (%) (Auto) 54 % (31-73) Lymphocytes (%) (Auto) 35 % (24-48) Monocytes (%) (Auto) 8 % (0-9) Eosinophils (%) (Auto) 2 % (0-3) Basophils (%) (Auto) 1 % (0-3) Neutrophils # (Auto) 4.3 x10^3uL (1.8-7.7) Lymphocytes # (Auto) 2.8 x10^3/uL (1.0-4.8) Monocytes # (Auto) 0.7 x10^3/uL (0.0-1.1) Eosinophils # (Auto) 0.2 x10^3/uL (0.0-0.7) Basophils # (Auto) 0.1 x10^3/uL (0.0-0.2) D-Dimer (Angelic) 0.61 ug/mlFEU (0.00-0.50) Sodium Level 141 mmol/L (136-145) Potassium Level 3.7 mmol/L (3.5-5.1) Chloride Level 105 mmol/L (98-107) Carbon Dioxide Level 28 mmol/L (21-32) Anion Gap 8 (6-14) Blood Urea Nitrogen 18 mg/dL (7-20) Creatinine 1.0 mg/dL (0.6-1.0) Estimated GFR (Cockcroft-Gault) 68.4 BUN/Creatinine Ratio 18 (6-20) Glucose Level 139 mg/dL (70-99) Calcium Level 9.2 mg/dL (8.5-10.1) Total Bilirubin 0.2 mg/dL (0.2-1.0) Aspartate Amino Transf (AST/SGOT) 15 U/L (15-37) Alanine Aminotransferase (ALT/SGPT) 28 U/L (14-59) Alkaline Phosphatase 95 U/L (46-116) Troponin I Quantitative 0.090 ng/mL (0.000-0.055) OT-Spx-I-Type Natriuretic Peptide 65 pg/mL (0-124) Total Protein 7.5 g/dL (6.4-8.2) Albumin 3.8 g/dL (3.4-5.0) Albumin/Globulin Ratio 1.0 (1.0-1.7) Lactic Acid Level 0.9 mmol/L (0.4-2.0) Prothrombin Time 12.5 SEC (11.7-14.0) Prothromb Time International Ratio 1.0 (0.8-1.1) Activated Partial Thromboplast Time 30 SEC (24-38) Test 04/30/17 09:45 04/30/17 13:05 Urine Collection Type Void Urine Color Yellow Urine Clarity Cloudy Urine pH 6.0 Urine Specific [place] 1.020 Urine Protein Negative mg/dL (NEG-TRACE) Urine Glucose (UA) Negative mg/dL (NEG) Urine Ketones (Stick) Negative mg/dL (NEG) Urine Blood Negative (NEG) Urine Nitrite Negative (NEG) Urine Bilirubin Negative (NEG) Urine Urobilinogen Dipstick 1.0 mg/dL (0.2 mg/dL) Urine Leukocyte Esterase Negative (NEG) Urine RBC 0 /HPF (0-2) Urine WBC 1-4 /HPF (0-4) Urine Squamous Epithelial Cells Mod /LPF Urine Bacteria Moderate /HPF (0-FEW) Urine Mucus Mod /LPF White Blood Count 10.0 x10^3/uL (4.0-11.0) Red Blood Count 4.60 x10^6/uL (3.50-5.40) Hemoglobin 13.0 g/dL (12.0-15.5) Hematocrit 39.5 % (36.0-47.0) Mean Corpuscular Volume 86 fL (79-100) Mean Corpuscular Hemoglobin 28 pg (25-35) Mean Corpuscular Hemoglobin Concent 33 g/dL (31-37) Red Cell Distribution Width 13.6 % (11.5-14.5) Platelet Count 215 x10^3/uL (140-400) Troponin I Quantitative 0.093 ng/mL (0.000-0.055) Laboratory Tests Test 04/30/17 07:57 04/30/17 08:05 04/30/17 08:15 04/30/17 08:30 Glucose (Fingerstick) 134 mg/dL (70-99) White Blood Count 8.0 x10^3/uL (4.0-11.0) Red Blood Count 4.62 x10^6/uL (3.50-5.40) Hemoglobin 12.9 g/dL (12.0-15.5) Hematocrit 39.4 % (36.0-47.0) Mean Corpuscular Volume 85 fL (79-100) Mean Corpuscular Hemoglobin 28 pg (25-35) Mean Corpuscular Hemoglobin Concent 33 g/dL (31-37) Red Cell Distribution Width 13.7 % (11.5-14.5) Platelet Count 214 x10^3/uL (140-400) Neutrophils (%) (Auto) 54 % (31-73) Lymphocytes (%) (Auto) 35 % (24-48) Monocytes (%) (Auto) 8 % (0-9) Eosinophils (%) (Auto) 2 % (0-3) Basophils (%) (Auto) 1 % (0-3) Neutrophils # (Auto) 4.3 x10^3uL (1.8-7.7) Lymphocytes # (Auto) 2.8 x10^3/uL (1.0-4.8) Monocytes # (Auto) 0.7 x10^3/uL (0.0-1.1) Eosinophils # (Auto) 0.2 x10^3/uL (0.0-0.7) Basophils # (Auto) 0.1 x10^3/uL (0.0-0.2) D-Dimer (Angelic) 0.61 ug/mlFEU (0.00-0.50) Sodium Level 141 mmol/L (136-145) Potassium Level 3.7 mmol/L (3.5-5.1) Chloride Level 105 mmol/L (98-107) Carbon Dioxide Level 28 mmol/L (21-32) Anion Gap 8 (6-14) Blood Urea Nitrogen 18 mg/dL (7-20) Creatinine 1.0 mg/dL (0.6-1.0) Estimated GFR (Cockcroft-Gault) 68.4 BUN/Creatinine Ratio 18 (6-20) Glucose Level 139 mg/dL (70-99) Calcium Level 9.2 mg/dL (8.5-10.1) Total Bilirubin 0.2 mg/dL (0.2-1.0) Aspartate Amino Transf (AST/SGOT) 15 U/L (15-37) Alanine Aminotransferase (ALT/SGPT) 28 U/L (14-59) Alkaline Phosphatase 95 U/L (46-116) Troponin I Quantitative 0.090 ng/mL (0.000-0.055) HD-Cxw-T-Type Natriuretic Peptide 65 pg/mL (0-124) Total Protein 7.5 g/dL (6.4-8.2) Albumin 3.8 g/dL (3.4-5.0) Albumin/Globulin Ratio 1.0 (1.0-1.7) Lactic Acid Level 0.9 mmol/L (0.4-2.0) Prothrombin Time 12.5 SEC (11.7-14.0) Prothromb Time International Ratio 1.0 (0.8-1.1) Activated Partial Thromboplast Time 30 SEC (24-38) Test 04/30/17 09:45 04/30/17 13:05 Urine Collection Type Void Urine Color Yellow Urine Clarity Cloudy Urine pH 6.0 Urine Specific [place] 1.020 Urine Protein Negative mg/dL (NEG-TRACE) Urine Glucose (UA) Negative mg/dL (NEG) Urine Ketones (Stick) Negative mg/dL (NEG) Urine Blood Negative (NEG) Urine Nitrite Negative (NEG) Urine Bilirubin Negative (NEG) Urine Urobilinogen Dipstick 1.0 mg/dL (0.2 mg/dL) Urine Leukocyte Esterase Negative (NEG) Urine RBC 0 /HPF (0-2) Urine WBC 1-4 /HPF (0-4) Urine Squamous Epithelial Cells Mod /LPF Urine Bacteria Moderate /HPF (0-FEW) Urine Mucus Mod /LPF White Blood Count 10.0 x10^3/uL (4.0-11.0) Red Blood Count 4.60 x10^6/uL (3.50-5.40) Hemoglobin 13.0 g/dL (12.0-15.5) Hematocrit 39.5 % (36.0-47.0) Mean Corpuscular Volume 86 fL (79-100) Mean Corpuscular Hemoglobin 28 pg (25-35) Mean Corpuscular Hemoglobin Concent 33 g/dL (31-37) Red Cell Distribution Width 13.6 % (11.5-14.5) Platelet Count 215 x10^3/uL (140-400) Troponin I Quantitative 0.093 ng/mL (0.000-0.055) Assessment/Plan Assessment/Plan Disposition is a very pleasant lady that has risk factors for coronary artery disease in view of her age, hypertension, hyperlipidemia, diabetes. She is here after a syncopal episode and it is hard to differentiate whether she may have had a significant dysrhythmia causing a mild troponin elevation and this syncope or whether she had a non-STEMI. We discussed the situation options and risks and he was decided to proceed with a heart catheterization in the morning to rule out the possibility of coronary artery disease and a non-STEMI. If this is a normal catheterization then I would like to continue to monitor the patient and to do a tilt table test. Thank you very much for asking me to participate in the care of this lady OKSANA MARROQUIN MD Apr 30, 2017 14:58
--- NOTE | 2017-04-30 14:59 | PDOC ---
MODERATE SEDATION ASSESSMENT RISKS/ALTERNATIVES Risks/Alternatives Risks and alternatives of this type of sedation and procedure discussed with: RISK/ALTERNATIVES: Patient H & P ON CHART H & P H & P on chart and reviewed for co-morbid conditions and appropriate labs. H&P ON CHART: Yes STATUS PREG STATUS ASSESSED: Yes MEDS/ALLERGIES REVIEWED Meds/Allergies Reviewed Medications and Allergies including time and route of recently administered narcotics and sedatives. MEDS/ALLERGIES REVIEWED: Yes ASA RATING ASA RATING: II AIRWAY ASSESSMENT Airway Assessment Airway patency, oral function limitations, presence of caps, crowns, dentures, partials, and ability to extend neck assessed. AIRWAY ASSESSMENT: Yes MALLAMPATI SCORE MALLAMPATI SCORE: II PRE-SEDATION ASSESSMENT PRE-SEDATION ASSESSMENT: Yes OKSANA MARROQUIN MD Apr 30, 2017 14:59
[2017-04-30] MEDS: ATENOLOL 25 MG TABLET. PO SCH (15:50)
[2017-04-30] MEDS: amLODIPine BESYLATE 5 MG TABLET PO SCH (15:50)
[2017-04-30] MEDS: hydroCHLOROthiazide 25 MG TABLET PO SCH (15:51)
[2017-04-30 15:55] VITALS: BP 183/103
[2017-04-30 19:35] VITALS: BP 168/104
[2017-04-30] MEDS: ATORVASTATIN CALCIUM 10 MG TABLET. PO SCH (20:24)
[2017-04-30] MEDS: ACETAMINOPHEN 325 MG TABLET. PO PRN (20:24)
[2017-04-30 23:20] VITALS: BP 124/93
[2017-05-01] VITALS (16 sets, daily range): BP systolic 98–170; BP diastolic 65–101
[2017-05-01 04:59] LABS: BASO # 0.1 x10^3/uL (0.0-0.2); BASO % 1 % (0-3); EOS % 3 % (0-3); HEMATOCRIT 39.8 % (36.0-47.0); HEMOGLOBIN 13.7 g/dL (12.0-15.5); LYMPH # 3.2 x10^3/uL (1.0-4.8); LYMPH % 42 % (24-48); MEAN CORPUSCULAR HEMOGLOBIN 29 pg (25-35); MEAN CORPUSCULAR HGB CONC 34 g/dL (31-37); MEAN CORPUSCULAR VOLUME 84 fL (79-100); MONO % 8 % (0-9); NEUT % 47 % (31-73); PLATELET COUNT 219 x10^3/uL (140-400); RED BLOOD COUNT 4.76 x10^6/uL (3.50-5.40); RED CELL DISTRIBUTION WIDTH 13.5 % (11.5-14.5); WHITE BLOOD COUNT 7.7 x10^3/uL (4.0-11.0)
[2017-05-01 05:25] LABS: CALCIUM 9.8 mg/dL (8.5-10.1); CREATININE 0.8 mg/dL (0.6-1.0); GFR 88.5; POTASSIUM 3.6 mmol/L (3.5-5.1)
[2017-05-01] MEDS: INSULIN ASPART 300 UNITS/3 ML INSULN.PEN SQ SCH ×3 (08:00→17:00)
[2017-05-01] MEDS ORDERED: IV 1/2 NORMAL SALINE 1,000 ML IV SCH (08:00)
--- NOTE | 2017-05-01 08:23 | PDOC ---
Provider Note Provider Note vss, no bisi or new sxs- labs show slight trop elevation, a1c 7.5- cath today re syncope QUINCY BAUTISTA MD May 01, 2017 08:23
[2017-05-01] MEDS ORDERED: hydroCHLOROthiazide 25 MG TABLET PO SCH (09:00)
[2017-05-01] MEDS ORDERED: amLODIPine BESYLATE 5 MG TABLET PO SCH (09:00)
[2017-05-01] MEDS ORDERED: ATENOLOL 25 MG TABLET. PO SCH (09:00)
[2017-05-01] MEDS: amLODIPine BESYLATE 5 MG TABLET PO SCH (09:06)
[2017-05-01] MEDS: ASPIRIN 325 MG TABLET PO SCH (09:07)
[2017-05-01] MEDS: ATENOLOL 25 MG TABLET. PO SCH (09:08)
[2017-05-01] MEDS: hydroCHLOROthiazide 25 MG TABLET PO SCH (09:10)
[2017-05-01] MEDS: ACETAMINOPHEN 325 MG TABLET. PO PRN (09:53)
[2017-05-01] MEDS ORDERED: LIDOCAINE 2% 20 ML VIAL. ONE (12:15)
[2017-05-01] MEDS ORDERED: MIDAZOLAM HCL/PF 2 MG/2 ML VIAL. ONE (12:17)
[2017-05-01] MEDS ORDERED: fentaNYL PF VIAL 100 MCG/2 ML VIAL ONE (12:18)
[2017-05-01] MEDS ORDERED: IOHEXOL 300 MG/ML 100ML VIAL. ONE (12:21)
[2017-05-01] MEDS ORDERED: IOHEXOL 300 MG/ML 100ML VIAL. IART ONE (12:30)
[2017-05-01] MEDS ORDERED: fentaNYL PF VIAL 100 MCG/2 ML VIAL IV ONE (12:30)
[2017-05-01] MEDS ORDERED: MIDAZOLAM HCL/PF 2 MG/2 ML VIAL. IV ONE (12:30)
[2017-05-01] MEDS ORDERED: LIDOCAINE 2% 20 ML VIAL. IJ ONE (12:30)
[2017-05-01] MEDS ORDERED: CONTRAST GIVEN MC PRN (12:45)
--- NOTE | 2017-05-01 14:46 | CARD ---
APPROVED REPORT Procedure(s) performed: MODERATE SEDATION: 29 MIN HISTORY The patient is a 61 year-old female with a history of : diabetes mellitus with treatment, hypertensio n, dyslipidemia. INDICATION The indication(s) include : non-STEMI , syncope. CASE TECHNIQUE The patient was brought electively into the cardiac catheterization lab. A timeout was performed conf irming the patient's name, date of , procedure, and site of procedure. All necessary parties wer e wearing the appropriate personal protective equipment and radiation monitoring devices. After expla ining the risks and benefits of the procedure, informed consent was obtained.(See nursing notes for m edications administered). The right groin was sterilely prepped and draped. The right femoral groin w as infiltrated with 2% Lidocaine subcutaneous anesthesia. During this case, Fluoroscopy and low osmol ar contrast were used for imaging. A sheath was inserted into the right femoral artery without diffic ulty. Coronary angiography was performed using coronary diagnostic catheters. The left coronary syste m was accessed and visualized with a Diagnostic catheter. The right coronary system was accessed and visualized with a Diagnostic catheter. The left ventricle was accessed and visualized with a Diagnost ic catheter. Left ventricular/Aortic Valve gradient assessed on pullback. Left ventriculogram was per formed in SEGURA projection. Pre-demployment femoral angiogram was performed . Closure device was deploy ed with a Angioseal without any complications. The patient tolerated the procedure well and there wer e no complications associated with the procedure. Coronary Angiography The patient's coronary anatomy is right dominant. The left main coronary artery is a large size vessel free of disease. The left main trifurcates to th e left anterior descending, circumflex, and ramus. The left anterior descending artery is a large size vessel free of disease. The first diagonal branch is a small size vessel free of disease. The second diagonal branch is a small size vessel free of di sease. The third diagonal branch is a small size vessel free of disease. The circumflex artery is a medium size vessel free of disease. The first obtuse marginal branch is a small size vessel free of disease. The second obtuse marginal branch is a small size vessel free of d isease. The third obtuse marginal branch is a small size vessel free of disease. The ramus intermedius artery is a small size vessel free of disease. The right coronary artery is a medium size vessel free of disease. The right posterior descending art [place] is a small size vessel free of disease. The right posterolateral branch is a small size vessel fr ee of disease. Left Ventriculography The left ventricle is normal in size with low normal contractility. The left ventricular ejection fra ction is estimated to be 50%. The left ventricular end diastolic pressure is 16 mmHg. There was no gr adient across the aortic valve upon pullback. Conclusion This pt does not have any significant CAD and there is no evidence of a nonSTEMI. Therefore I beleive that the enzyme elevation may have been due to ischemia from coronary hypoperfusi on during the syncope possibly related to dysrhythmias. I would like to do a Tilt Table Test tomorrow to evaluate further.
[2017-05-01] MEDS ORDERED: ACETAMINOPHEN 325 MG TABLET. PO PRN (16:00)
[2017-05-01] MEDS ORDERED: oxyCODONE/APAP 5/325 1 TAB TABLET PO PRN (18:00)
[2017-05-01] MEDS: ATORVASTATIN CALCIUM 10 MG TABLET. PO SCH (20:42)
[2017-05-02] VITALS (7 sets, daily range): BP systolic 127–156; BP diastolic 81–102
--- NOTE | 2017-05-02 08:40 | PDOC ---
Provider Note Provider Note vss, labs ok, no arrthymias- cath clean, tilt table today, dc after if ok QUINCY BAUTISTA MD May 02, 2017 08:40
[2017-05-02] MEDS: amLODIPine BESYLATE 5 MG TABLET PO SCH (09:05)
[2017-05-02] MEDS: hydroCHLOROthiazide 25 MG TABLET PO SCH (09:08)
[2017-05-02] MEDS: ASPIRIN 325 MG TABLET PO SCH (09:08)
[2017-05-02] MEDS: ATENOLOL 25 MG TABLET. PO SCH (17:01)
--- NOTE | 2017-05-02 17:27 | PDOC ---
PROGRESS NOTES Subjective Subjective The patient had the tilt table test done. She completed the test and did not have any significant changes in her heart rhythm, no bradycardia, her blood pressure ran high through most of the test and she did not have syncope however she complained of feeling hot and sweaty and at times even jittery but she did not lose consciousness. Objective Objective Vital Signs Date Time Temp Pulse Resp B/P (MAP) Pulse Ox O2 Delivery O2 Flow Rate FiO2 05/02/17 17:01 65 153/99 05/02/17 14:52 97.6 19 100 Room Air 97.6 05/01/17 12:39 2.0 Intake and Output 05/03/17 07:00 Intake Total 950 ml Balance 950 ml Intake Oral 950 ml # Voids 3 Physical Exam Physical Exam No significant changes in cardiac exam Assessment Assessment The patient had a negative tilt table test for neurocardiogenic syncope although she had some symptoms but there was no significant changes in the heart rate and no drop in the blood pressure actually her blood pressure was running high through the whole test. I would like to observe her tonight and if her rhythm is doing well discharge her in the morning. I would like to get a 14 day Holter monitor to continue to monitor her as an outpatient. If this doesn't show any evidence of the abnormal rhythm or her symptoms then may need to consider insertion of an implantable loop recorder. Comment Review of Relevant I have reviewed the following items jose r (where applicable) has been applied. Labs Laboratory Tests Test 04/30/17 20:10 04/30/17 20:45 05/01/17 04:45 05/01/17 08:01 Troponin I Quantitative 0.077 ng/mL (0.000-0.055) Glucose (Fingerstick) 148 mg/dL (70-99) 163 mg/dL (70-99) White Blood Count 7.7 x10^3/uL (4.0-11.0) Red Blood Count 4.76 x10^6/uL (3.50-5.40) Hemoglobin 13.7 g/dL (12.0-15.5) Hematocrit 39.8 % (36.0-47.0) Mean Corpuscular Volume 84 fL (79-100) Mean Corpuscular Hemoglobin 29 pg (25-35) Mean Corpuscular Hemoglobin Concent 34 g/dL (31-37) Red Cell Distribution Width 13.5 % (11.5-14.5) Platelet Count 219 x10^3/uL (140-400) Neutrophils (%) (Auto) 47 % (31-73) Lymphocytes (%) (Auto) 42 % (24-48) Monocytes (%) (Auto) 8 % (0-9) Eosinophils (%) (Auto) 3 % (0-3) Basophils (%) (Auto) 1 % (0-3) Neutrophils # (Auto) 3.6 x10^3uL (1.8-7.7) Lymphocytes # (Auto) 3.2 x10^3/uL (1.0-4.8) Monocytes # (Auto) 0.6 x10^3/uL (0.0-1.1) Eosinophils # (Auto) 0.2 x10^3/uL (0.0-0.7) Basophils # (Auto) 0.1 x10^3/uL (0.0-0.2) Sodium Level 139 mmol/L (136-145) Potassium Level 3.6 mmol/L (3.5-5.1) Chloride Level 102 mmol/L (98-107) Carbon Dioxide Level 28 mmol/L (21-32) Anion Gap 9 (6-14) Blood Urea Nitrogen 13 mg/dL (7-20) Creatinine 0.8 mg/dL (0.6-1.0) Estimated GFR (Cockcroft-Gault) 88.5 Glucose Level 149 mg/dL (70-99) Calcium Level 9.8 mg/dL (8.5-10.1) Thyroid Stimulating Hormone (TSH) 3.286 uIU/mL (0.358-3.74) Test 05/01/17 11:31 05/01/17 15:23 05/01/17 16:56 05/01/17 20:50 Glucose (Fingerstick) 120 mg/dL (70-99) 185 mg/dL (70-99) 118 mg/dL (70-99) 122 mg/dL (70-99) Test 05/02/17 07:40 05/02/17 11:17 Glucose (Fingerstick) 146 mg/dL (70-99) 128 mg/dL (70-99) Laboratory Tests Test 05/01/17 20:50 05/02/17 07:40 05/02/17 11:17 Glucose (Fingerstick) 122 mg/dL (70-99) 146 mg/dL (70-99) 128 mg/dL (70-99) Microbiology 04/30/17 Urine Culture - Final, Complete 04/30/17 Urine Culture Result 1 (LATONYA) - Final, Complete Medications Current Medications Iohexol (Omnipaque 300 Mg/ml) 75 ml 1X ONCE IV Last administered on 04/30/17 10:08; Start 04/30/17 at 10:00; Stop 04/30/17 at 10:01; Status DC Iohexol (Omnipaque 300 Mg/ml) 75 ml STK-MED ONCE .ROUTE ; Start 04/30/17 at 09: 55; Stop 04/30/17 at 09:56; Status DC Aspirin (Janice Aspirin) 325 mg 1X ONCE PO Last administered on 04/30/17 11:00 ; Start 04/30/17 at 11:00; Stop 04/30/17 at 11:01; Status DC Ondansetron HCl (Zofran) 4 mg PRN Q8HRS PRN IV NAUSEA/VOMITING; Start 04/30/17 at 12:00; Stop 05/01/17 at 11:59; Status DC Morphine Sulfate 2 mg PRN Q2HR PRN IV PAIN; Start 04/30/17 at 12:00; Stop 05/01 at 11:59; Status DC Acetaminophen (Tylenol) 650 mg PRN Q4HRS PRN PO FEVER Last administered on 05/01 09:53; Start 04/30/17 at 12:00; Stop 05/01/17 at 11:59; Status DC Nitroglycerin (Nitrostat) 0.4 mg PRN Q5MIN PRN SL CHEST PAIN; Start 04/30/17 at 12:00; Stop 05/01/17 at 11:59; Status DC Insulin Aspart (NovoLOG) 0-5 UNITS TIDWMEALS SQ ; Start 04/30/17 at 12:00; Stop 05/02/17 at 08:31; Status DC Dextrose (Dextrose 50%-Water Syringe) 12.5 gm PRN Q15MIN PRN IV SEE COMMENTS; Start 04/30/17 at 12:00 Heparin Sodium (Porcine) (Heparin Sodium) 4,000 unit 1X ONCE IV Last administered on 04/30/17 15:18; Start 04/30/17 at 12:45; Stop 04/30/17 at 12:48 ; Status DC Heparin Sodium/ Dextrose 500 ml @ 0 mls/hr CONT PRN IV SEE I/O RECORD Last administered on 04/30/17 15:21; Start 04/30/17 at 12:45; Stop 05/01/17 at 15:53 ; Status DC Heparin Sodium (Porcine) (Heparin Sodium) 2,100 unit PRN Q6HRS PRN IV FOR UFH LEVEL LESS THAN 0.2; Start 04/30/17 at 12:45; Stop 05/02/17 at 07:29; Status DC Amlodipine Besylate (Norvasc) 5 mg DAILY PO ; Start 05/01/17 at 09:00; Stop at 09:00; Status DC Aspirin (Janice Aspirin) 325 mg DAILYWBKFT PO Last administered on 05/02/17 09: 08; Start 05/01/17 at 08:00 Atorvastatin Calcium (Lipitor) 10 mg HS PO Last administered on 05/01/17 20:42 ; Start 04/30/17 at 21:00 Atenolol (Tenormin) 25 mg DAILY PO ; Start 05/01/17 at 09:00; Stop 05/01/17 at 09:00; Status DC Hydrochlorothiazide (Hydrodiuril) 6.25 mg DAILY PO ; Start 05/01/17 at 09:00; Stop 05/01/17 at 09:00; Status DC Sodium Chloride 1,000 ml @ 60 mls/hr [id number] IV Last administered on 11:47; Start 05/01/17 at 08:00; Stop 05/01/17 at 18:00; Status DC Amlodipine Besylate (Norvasc) 5 mg DAILY PO Last administered on 05/02/17 09: 05; Start 04/30/17 at 15:30 Atenolol (Tenormin) 25 mg DAILY PO Last administered on 05/02/17 17:01; Start 04/30/17 at 15:30 Hydrochlorothiazide (Hydrodiuril) 6.25 mg DAILY PO Last administered on 09:08; Start 04/30/17 at 15:30 Lidocaine HCl 20 ml STK-MED ONCE .ROUTE ; Start 05/01/17 at 12:15; Stop at 12:16; Status DC Midazolam HCl (Versed) 2 mg STK-MED ONCE .ROUTE ; Start 05/01/17 at 12:17; Stop 05/01/17 at 12:18; Status DC Heparin Sodium/ Sodium Chloride 1,000 ml @ As Directed STK-MED ONCE .ROUTE ; Start 05/01/17 at 12:18; Stop 05/01/17 at 12:19; Status DC Fentanyl Citrate (Fentanyl 2ml Vial) 100 mcg STK-MED ONCE .ROUTE ; Start at 12:18; Stop 05/01/17 at 12:19; Status DC Iohexol (Omnipaque 300 Mg/ml) 100 ml STK-MED ONCE .ROUTE ; Start 05/01/17 at 12: 21; Stop 05/01/17 at 12:22; Status DC Heparin Sodium/ Sodium Chloride 1,000 unit 1X ONCE IART Last administered on t 12:37; Start 05/01/17 at 12:30; Stop 05/01/17 at 12:39; Status DC Midazolam HCl (Versed) 2 mg 1X ONCE IV Last administered on 05/01/17 12:39; Start 05/01/17 at 12:30; Stop 05/01/17 at 12:39; Status DC Fentanyl Citrate (Fentanyl 2ml Vial) 100 mcg 1X ONCE IV Last administered on 12:39; Start 05/01/17 at 12:30; Stop 05/01/17 at 12:39; Status DC Iohexol (Omnipaque 300 Mg/ml) 100 ml 1X ONCE IART Last administered on 12:39; Start 05/01/17 at 12:30; Stop 05/01/17 at 12:39; Status DC Lidocaine HCl 20 ml 1X ONCE IJ Last administered on 05/01/17t 12:38; Start at 12:30; Stop 05/01/17 at 12:39; Status DC Info (Do NOT chart on this entry -- for MONITORING) 1 each PRN DAILY PRN MC SEE COMMENTS; Start 05/01/17 at 12:45; Stop 05/03/17 at 12:44 Acetaminophen (Tylenol) 650 mg PRN Q4HRS PRN PO MILD PAIN, Fever Last administered on 05/01/17 17:05; Start 05/01/17 at 16:00 Oxycodone/ Acetaminophen (Percocet 5/325) 1 tab PRN Q6HRS PRN PO PAIN MOD TO SEV Last administered on 05/01/17 17:59; Start 05/01/17 at 18:00 Active Scripts Active Reported Centrum Silver Tablet (Multivits-Min/Fa/Lycopene/Lut) 1 Each Tablet 1 Each PO Atorvastatin Calcium 10 Mg Tablet 10 Mg PO HS Bisoprolol-Hctz 2.5-6.25 Mg Tb (Bisoprolol Fumarate/Hctz) 1 Each Tablet 1 Each PO DAILY Amlodipine Besylate 5 Mg Tablet 5 Mg PO DAILY Aspirin 325 Mg Tablet 1 Tab PO DAILY Vitals/I & O Vital Sign - Last 24 Hours 05/01/17 05/01/17 05/01/17 05/01/17 17:59 18:00 19:20 19:36 Temp 97.4 97.4 Pulse 65 60 Resp 18 B/P (MAP) 136/85 (102) 148/88 (108) Pulse Ox 99 O2 Delivery Room Air Room Air Room Air 05/01/17 05/01/17 05/02/17 05/02/17 20:00 22:45 03:30 07:37 Temp 97.9 98.5 98.6 97.9 98.5 98.6 Pulse 64 76 64 Resp 18 18 19 B/P (MAP) 140/80 (100) 137/86 (103) 156/96 (116) Pulse Ox 100 100 98 O2 Delivery Room Air Room Air Room Air Room Air 05/02/17 05/02/17 05/02/17 05/02/17 08:05 09:05 10:40 10:51 Temp 98.3 98.3 Pulse 69 69 Resp 16 B/P (MAP) 156/96 141/102 (115) 150/92 (111) Pulse Ox 99 O2 Delivery Room Air Room Air 05/02/17 05/02/17 05/02/17 11:00 14:52 17:01 Temp 97.6 97.6 Pulse 63 65 Resp 19 B/P (MAP) 152/92 (112) 153/99 Pulse Ox 100 O2 Delivery Room Air Room Air Intake and Output 05/02/17 05/02/17 05/03/17 15:00 23:00 07:00 Intake Total 300 ml 650 ml Balance 300 ml 650 ml OKSANA MARROQUIN MD May 02, 2017 17:27
[2017-05-02] MEDS ORDERED: MAGNESIUM HYDROXIDE 2,400 MG/30 ML ORAL.SUSP. PO PRN (20:00)
[2017-05-02] MEDS ORDERED: BISACODYL 5 MG TABLET.DR. PO PRN (20:00)
[2017-05-02] MEDS: ATORVASTATIN CALCIUM 10 MG TABLET. PO SCH (20:14)
[2017-05-03 03:10] VITALS: BP 112/72
[2017-05-03 07:00] VITALS: BP 114/87
[2017-05-03] MEDS: hydroCHLOROthiazide 25 MG TABLET PO SCH (08:33)
[2017-05-03] MEDS: ASPIRIN 325 MG TABLET PO SCH (08:33)
[2017-05-03 08:38] VITALS: BP 114/87
[2017-05-03] MEDS: ATENOLOL 25 MG TABLET. PO SCH (08:38)
[2017-05-03] MEDS: amLODIPine BESYLATE 5 MG TABLET PO SCH (08:38)
--- NOTE | 2017-05-03 08:42 | DISCH ---
DISCHARGE INSTRUCTIONS Condition on Discharge Condition on Discharge: Stable Activity After Discharge Activity Instructions for Disc: No restrictions Diet after Discharge Diet after Discharge: Regular Follow-Up Follow up with: dr yajaira Garcia w QUINCY BAUTISTA MD May 03, 2017 08:42
--- NOTE | 2017-05-03 08:45 | PDOC ---
Provider Note Provider Note [id number] QUINCY BAUTISTA MD May 03, 2017 08:45
--- NOTE | 2017-05-03 10:13 | DS ---
DATE OF DISCHARGE: 05/03/2017 HOSPITAL SUMMARY: A 61-year-old black female with history of mild diabetes and hypertension, came in with near syncopal episode. It had been about 24 hours since she had had her medication for blood pressure. CBC and chemistry profile were unremarkable as was TSH of 3.2, lactic acid and urine. Chest x-ray was clear. CT scan of the head was normal and CTA of the chest was normal as well. She underwent cardiac catheterization by Dr. Umaña and no abnormalities were found and a tilt-table test was done, which was normal as well. She will be followed as an outpatient at this point with outpatient Holter monitor and evaluate for any further evidence of cardiac bisi or tachyarrhythmias. FINAL DIAGNOSES: 1. Near syncope, etiology undetermined. 2. Type 2 diabetes mellitus, controlled. OPERATIONS AND PROCEDURES: Cardiac catheterization. COMPLICATIONS: None. CONSULTATIONS: Dr. Umaña. DISPOSITION: Home meds remain the same. Office followup with Dr. Umaañ in 1 week regarding Holter monitor, Dr. Wright in 2 weeks for continued medical observation. Activity as tolerated. Regular diet with diabetic restrictions. QUINCY WRIGHT MD DR: ABDULKADIR/mackenzie JOB#: [id number] / [id number]
--- NOTE | 2017-05-03 10:50 | CARD ---
APPROVED REPORT EXAM Tilt Table Attending Nurse: Edna Michael RN HISTORY The Patient is a 61 year-old female with a history of syncope INDICATIONS syncope PROCEDURE After explaining the risks, benefits, and alternative options, informed consent was obtained from the patient. Base - lineRhythm: SinusHR: 67 bpmBP: 160/68xfQwU5 Sat: 95 % Flat15:30Rhythm: SinusHR: 67 bpmBP: 160/79jwGdJ1 Sat: 95 % [id number]: SinusHR: 67 bpmBP: 155/305qwVrE6 Sat: 95 % Mfsg3028Budqnt: SinusHR: 69 bpmBP: 155/861bvZrX1 Sat: 95 % [id number]: SinusHR: 66 bpmBP: 155/39ymKsR7 Sat: 95 % Vndk4576Digfic: SinusHR: 66 bpmBP: 166/178yeZaE3 Sat: 95 % Zzyt4134Gjuyps: SinusHR: 68 bpmBP: 162/377zdHxR6 Sat: 95 % Eucq6495Zwetts: SinusHR: 68 bpmBP: 162/294fqJrZ3 Sat: 95 % 80' Jfha2159Ssvqwl: SinusHR: 85 bpmBP: 169/112zdHeY7 Sat: 98 % 80' Gequ7262Stnxlb: SinusHR: 96 bpmBP: 184/799axEoH6 Sat: 98 % 80' Cdjy0918Deqteh: SinusHR: 96 bpmBP: 179/045beJvD7 Sat: 95 % 80' Mhcm0369Cbunsm: SinusHR: 87 bpmBP: 160/706kfNtX5 Sat: 95 % 80' [id number]: SinusHR: 89 bpmBP: 151/612odUsJ3 Sat: 98 % 80' Murd3651Pajxph: SinusHR: 95 bpmBP: 150/123slCvG9 Sat: 99 % Ohsl6496Kmeedj: SinusHR: 74 bpmBP: 161/689feDdS0 Sat: 98 % Fdtd8717Cqyjac: SinusHR: 70 bpmBP: 147/54uxBqX3 Sat: 99 % Flat16:45Rhythm: SinusHR: 70 bpmBP: 145/31apMfK7 Sat: 100 % COMPLICATIONS PT WHILE STANDING AT 90 DEGREE ANGLE FELT HOT AND DIAPHORETIC, NO CHANGE IN VITAL SIGNS. CONCLUSION This is a negative Tilt Table Test for neurocardiogenic syncope in a pt with HTN RECOMMENDATIONS Will do a 14 day Holter monitor as an out-pt.
== END 2017-05-03 10:10 | disposition home or self-care (01) | DRG 282 ==
LOC: ER 07:42 → 2 SOUTH 10:53
PROVIDERS: ADMIT Family Medicine; ATTEND Family Medicine
PROC: 4A023N7 Measurement of Cardiac Sampling and Pressure, Left Heart, Percutaneous Approach (ICD-10-PCS; principal; 2017-05-01)
PROC: B2111ZZ Fluoroscopy of Multiple Coronary Arteries using Low Osmolar Contrast (ICD-10-PCS; 2017-05-01)
PROC: B2151ZZ Fluoroscopy of Left Heart using Low Osmolar Contrast (ICD-10-PCS; 2017-05-01)
DX: I21.4 Non-ST elevation (NSTEMI) myocardial infarction (principal); E11.9 Type 2 diabetes mellitus without complications; I10 Essential (primary) hypertension; E78.5 Hyperlipidemia, unspecified; E78.00 Pure hypercholesterolemia, unspecified; Z82.49 Family history of ischemic heart disease and other diseases of the circulatory system; Z83.3 Family history of diabetes mellitus; Z86.73 Personal history of transient ischemic attack (TIA), and cerebral infarction without residual deficits; R55 Syncope and collapse
CPT/HCPCS: 36415; 70450; 71010; 71275; 80048; 80053; 81001; 82962; 83605; 83880; 84443; 84484; 85025; 85027; 85379; 85610; 85730; 87086; 93005; 93458; 93660; C1769; C1771; C1892; G0269; J1644; J1815; J2250; J3010; Q9967; 99285-25; J2001

== ENCOUNTER → 2017-05-04 | Outpatient (CLI) | payer OTHER ==
[2017-05-03 08:38] VITALS: BP 114/87
[~2017-05-04] MED LIST: AMLO5TAB2 PO; ASPI325T8 PO; ATOR10TA60 PO; BISO1TAB10 PO; MULT-658 PO
== END | disposition home or self-care (01) ==
LOC: EKG 09:53
PROVIDERS: ATTEND Internal Medicine Cardiovascular Disease
DX: R55 Syncope and collapse (principal)
CPT/HCPCS: 93225

== ENCOUNTER → 2017-12-19 | Outpatient (CLI) | payer OTHER ==
[2017-12-20 02:20] LABS: HEMOGLOBIN A1C 10.2 % (4.8-5.6)
== END | disposition home or self-care (01) ==
LOC: LAB 06:32
DX: E11.69 Type 2 diabetes mellitus with other specified complication (principal)
CPT/HCPCS: 36415; 83036

== ENCOUNTER → 2018-04-11 | Outpatient (CLI) | payer OTHER ==
--- NOTE | 2018-04-11 10:06 | RAD ---
DATE: 04/11/2018 EXAM: MAMMO FAIZA DIAG BILAT HISTORY: Routine screening COMPARISON: 04/13/2017 This study was interpreted with the benefit of Computerized Aided Detection (CAD). The breast parenchyma shows scattered fibroglandular densities. Breast parenchyma level B. FINDINGS: 2-D and 3-D tomosynthesis imaging was performed in CC and MLO projections. No new or enlarging breast densities are seen. A breast biopsy marker is present laterally in the left breast. Benign type calcifications are noted. No suspicious microcalcifications have developed. IMPRESSION: Stable mammograms without evidence of malignancy. BI-RADS CATEGORY: 2 BENIGN FINDING(S) RECOMMENDED FOLLOW-UP: 12M 12 MONTH FOLLOW-UP PQRS compliance statement: Patient information was entered into a reminder system with a target due date for the next mammogram. Mammography is a sensitive method for finding small breast cancers, but it does not detect them all and is not a substitute for careful clinical examination. A negative mammogram does not negate a clinically suspicious finding and should not result in delay in biopsying a clinically suspicious abnormality. "Our facility is accredited by the [employer] Mammography Program."
== END | disposition home or self-care (01) ==
LOC: MAMMO 08:30
PROVIDERS: ATTEND Family Medicine
DX: R92.1 Mammographic calcification found on diagnostic imaging of breast (principal); I10 Essential (primary) hypertension; E11.9 Type 2 diabetes mellitus without complications; E78.00 Pure hypercholesterolemia, unspecified
CPT/HCPCS: 77066; G0279; 77062

== ENCOUNTER → 2018-06-01 | Day surgery (SDC) | payer OTHER ==
[~2018-06-01] MED LIST changes: -AMLO5TAB2 PO; +AMLO5TAB7 PO; +HYDROmorphone 2 MG/ML VIAL IV PRN; +IV RINGERS,LACTATED 1000ML 1,000 ML IV SCH; +LIDOCAINE 1% PF 2 ML VIAL. ID PRN; +METF100010 PO; +MORPHINE SULFATE 2 MG/ML VIAL. IV PRN; +ONDANSETRON PF 4 MG/2 ML VIAL. IV PRN; +PROCHLORPERAZINE 10 MG/2 ML VIAL. IV PRN; +PROPOFOL 40 ML IV ONE; +fentaNYL PF VIAL 100 MCG/2 ML VIAL IV PRN
[2018-06-01 07:55] VITALS: BP 161/90
--- NOTE | 2018-06-01 22:55 | CONS ---
DATE OF CONSULTATION: 06/01/2018 GASTROENTEROLOGY CONSULTATION REFERRING PHYSICIAN: Dr. Quincy Wright. REASON FOR CONSULTATION: History of colonic polyps. HISTORY OF PRESENT ILLNESS: This is a 62-year-old female, with past medical history significant for , cholecystectomy, hyperlipidemia, diabetes, hypertension, seen for interval colonoscopy. The patient has had history of polyps in the past. At the present time, has no diarrhea, constipation, melena or hematochezia. Weight and appetite are stable. No family history of colon cancer is elicited. She is otherwise without additional complaints. PAST MEDICAL HISTORY: Hypertension, hyperlipidemia, diabetes, status post , status post cholecystectomy. ALLERGIES: None. MEDICATIONS: Include amlodipine, aspirin, atorvastatin, bisoprolol, metformin and multivitamin. SOCIAL HISTORY: Nondrinker, nonsmoker. 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 FAMILY HISTORY: Otherwise, significant for breast cancer with her mother. REVIEW OF SYSTEMS: HEENT: There is no decrease in visual acuity. CARDIAC: History of hypertension. PULMONARY: No shortness breath, productive cough or asthma. RENAL: No dysuria, frequency or hematuria. NEUROLOGIC: No stroke, migraine or neuropathy. PSYCHIATRIC: No mood swings, depression or insomnia. ENDOCRINE: History of diabetes and hyperlipidemia. HEMATOLOGIC: No bleeding, bruising or coagulopathy. GASTROINTESTINAL: See history of present illness. PHYSICAL EXAMINATION: GENERAL: This is a well-nourished, well-developed female who is alert and cooperative, in no acute distress. VITAL SIGNS: Temperature 97.4, pulse 68, respirations 20. HEENT: Normocephalic and atraumatic head. Pupils and extraocular muscles are not tested. Sclerae anicteric. NECK: Supple. LUNGS: Clear. CARDIOVASCULAR: Reveals S1, S2 without S3, S4 or appreciable murmur. ABDOMEN: Soft abdomen, normal bowel sounds without appreciable hepatosplenomegaly. EXTREMITIES: Reveals no cyanosis, clubbing or edema. IMPRESSION: Colorectal screening is warranted at this time with history of colonic polyps. Risks and benefits of procedure have been discussed with the patient including risk of hemorrhage and perforation. She is willing to proceed. MILTON HODGE MD DR: SEBLE/mackenzie JOB#: [id number] / [id number] QUINCY Gorman MD
== END | disposition home or self-care (01) ==
LOC: ENDOS 05:57
PROVIDERS: ATTEND Internal Medicine Gastroenterology
DX: Z12.11 Encounter for screening for malignant neoplasm of colon (principal); K57.30 Diverticulosis of large intestine without perforation or abscess without bleeding; I10 Essential (primary) hypertension; K64.0 First degree hemorrhoids; E11.9 Type 2 diabetes mellitus without complications; E78.5 Hyperlipidemia, unspecified; E66.9 Obesity, unspecified; Z98.890 Other specified postprocedural states; Z90.49 Acquired absence of other specified parts of digestive tract; Z79.899 Other long term (current) drug therapy; Z86.010 Personal history of colon polyps; Z79.82 Long term (current) use of aspirin; Z80.3 Family history of malignant neoplasm of breast; Z79.84 Long term (current) use of oral hypoglycemic drugs
CPT/HCPCS: 45378; J2704

== ENCOUNTER → 2018-08-17 | Outpatient (CLI) | payer OTHER ==
[2018-06-01 07:55] VITALS: BP 161/90
[~2018-08-17] MED LIST changes: -HYDROmorphone 2 MG/ML VIAL IV PRN; -IV RINGERS,LACTATED 1000ML 1,000 ML IV SCH; -LIDOCAINE 1% PF 2 ML VIAL. ID PRN; -MORPHINE SULFATE 2 MG/ML VIAL. IV PRN; -ONDANSETRON PF 4 MG/2 ML VIAL. IV PRN; -PROCHLORPERAZINE 10 MG/2 ML VIAL. IV PRN; -PROPOFOL 40 ML IV ONE; -fentaNYL PF VIAL 100 MCG/2 ML VIAL IV PRN
[2018-08-17 07:26] LABS: CALCIUM 9.7 mg/dL (8.5-10.1); GFR 68.2; POTASSIUM 4.2 mmol/L (3.5-5.1)
[2018-08-17 07:31] LABS: CHOLESTEROL/HDL RATIO 4.5
[2018-08-17 19:16] LABS: HEMOGLOBIN A1C 8.7 % (4.8-5.6)
== END | disposition home or self-care (01) ==
LOC: LAB 06:33
PROVIDERS: ATTEND Family Medicine
DX: E11.69 Type 2 diabetes mellitus with other specified complication (principal); E01.0 Iodine-deficiency related diffuse (endemic) goiter; Z79.84 Long term (current) use of oral hypoglycemic drugs
CPT/HCPCS: 36415; 80048; 80061; 83036; 84443

== ENCOUNTER → 2018-12-17 | Outpatient (CLI) | payer OTHER ==
[2018-06-01 07:55] VITALS: BP 161/90
[~2018-12-17] MED LIST changes: +AMLO5TAB10 PO; -AMLO5TAB7 PO
[2018-12-17 23:08] LABS: HEMOGLOBIN A1C 10.8 % (4.8-5.6)
== END | disposition home or self-care (01) ==
LOC: LAB 06:37
PROVIDERS: ATTEND Family Medicine
DX: E11.9 Type 2 diabetes mellitus without complications (principal)
CPT/HCPCS: 36415; 83036

== ENCOUNTER → 2018-12-21 | Outpatient (CLI) | payer OTHER ==
[2018-06-01 07:55] VITALS: BP 161/90
--- NOTE | 2018-12-21 13:41 | RAD ---
Thyroid ultrasound, 12/21/2018: HISTORY: Thyromegaly The right lobe of the gland measures 5.8 x 2.6 x 2.4 cm while the left lobe of the gland measures 5.8 x 3.0 x 3.2 cm. Multiple thyroid nodules are present bilaterally. The largest nodule lies inferiorly on the left and measures 4 x 3 x 3.1 cm. It contains cystic and solid components. It is wider than tall. It contains several echogenic foci without definite calcification. A 1.6 cm nodule of medium echogenicity in the superior aspect of the left lobe of the gland lies directly adjacent to the above-described large complex nodule. It may represent a component of the dominant nodule. On the right, the largest nodule lies in the midportion of the gland and measures 2.7 x 1.9 x 1.7 cm. It is predominately solid nodule with smaller cystic components. It contains at least one coarse calcification. There is an adjacent 2.4 x 1.8 x 1.5 cm nodule in the lower pole the right lobe of the gland with similar characteristics. Again, these nodules are confluent and difficult to separate. IMPRESSION: Multinodular thyroid gland with dominant complex nodules containing calcifications in both lobes as described above. Bilateral thyroid biopsy is suggested for further evaluation. Electronically signed by: Gurmeet Reynoso MD (12/21/2018 1:38 PM) [facility]
== END | disposition home or self-care (01) ==
LOC: US 09:30
PROVIDERS: ATTEND Family Medicine
DX: E04.2 Nontoxic multinodular goiter (principal); E07.89 Other specified disorders of thyroid
CPT/HCPCS: 76536

== ENCOUNTER → 2019-01-10 | Outpatient (CLI) | payer OTHER ==
[2018-06-01 07:55] VITALS: BP 161/90
--- NOTE | 2019-01-10 14:57 | RAD ---
Ultrasound-guided right thyroid biopsy, 01/10/2019: History: Multinodular thyroid gland Previous imaging demonstrated a multinodular gland with dominant solid nodules in both lobes. We first targeted the process in the mid to lower pole of the right lobe of the gland. This has the appearance of a lobulated nodule or 2 confluent nodules with similar sonographic characteristics. Under local anesthesia, aseptic conditions and sonographic guidance 4 separate 25-gauge aspirates were obtained from this nodule via an anteromedial approach. The materials were sent to pathology for evaluation. Ultrasound-guided left thyroid biopsy, 01/10/2019: We then targeted the dominant left breast nodule which demonstrates cystic and solid components. Under local anesthesia, aseptic conditions and sonographic guidance 4 separate aspirates were obtained from this nodule via an anteromedial approach. We predominantly targeted the solid components. The materials were sent to pathology for evaluation. Hemostasis was then obtained. The patient tolerated the procedures well and left the department in good condition. The pathology results are pending.
== END | disposition home or self-care (01) ==
LOC: US 14:17
PROVIDERS: ATTEND Family Medicine
DX: E04.2 Nontoxic multinodular goiter (principal); Z79.82 Long term (current) use of aspirin
CPT/HCPCS: 10005; 10006; 76942; 88173; 88305

== ENCOUNTER → 2019-04-22 | Outpatient (CLI) | payer OTHER ==
[2018-06-01 07:55] VITALS: BP 161/90
[2019-04-23 00:11] LABS: HEMOGLOBIN A1C 7.1 % (4.8-5.6)
--- NOTE | 2019-04-23 08:27 | RAD ---
DATE: 04/22/2019 EXAM: MAMMO FAIZA SCREENING BILATERAL HISTORY: Routine screening COMPARISON: 04/11/2018, 04/13/2017 mammographic exams This study was interpreted with the benefit of Computerized Aided Detection (CAD). Breast Density: HETERO The breast parenchyma is heterogenously dense, which could reduce sensitivity of mammography. Breast parenchyma level C. FINDINGS: Benign calcifications are present. No masses or distortion. Benign-appearing lymph nodes are evident. IMPRESSION: Stable BI-RADS CATEGORY: 1 NEGATIVE RECOMMENDED FOLLOW-UP: 12M 12 MONTH FOLLOW-UP PQRS compliance statement: Patient information was entered into a reminder system with a target due date in one year for the next mammogram. Mammography is a sensitive method for finding small breast cancers, but it does not detect them all and is not a substitute for careful clinical examination. A negative mammogram does not negate a clinically suspicious finding and should not result in delay in biopsying a clinically suspicious abnormality. "Our facility is accredited by the [employer] Mammography Program."
== END | disposition home or self-care (01) ==
LOC: LAB 06:24
PROVIDERS: ATTEND Family Medicine
DX: Z12.31 Encounter for screening mammogram for malignant neoplasm of breast (principal); E11.69 Type 2 diabetes mellitus with other specified complication; N64.89 Other specified disorders of breast
CPT/HCPCS: 36415; 77063; 77067; 83036

== ENCOUNTER → 2019-08-22 | Outpatient (CLI) | payer OTHER ==
[2018-06-01 07:55] VITALS: BP 161/90
[~2019-08-22] MED LIST changes: -BISO1TAB10 PO; +BISO1TAB82 PO
[2019-08-22 08:09] LABS: CALCIUM 10.1 mg/dL (8.5-10.1); CREATININE 1.2 mg/dL (0.6-1.0); GFR 55.1; POTASSIUM 4.2 mmol/L (3.5-5.1)
[2019-08-22 08:11] LABS: CHOLESTEROL/HDL RATIO 5.3
[2019-08-23 00:07] LABS: HEMOGLOBIN A1C 6.9 % (4.8-5.6)
== END | disposition home or self-care (01) ==
LOC: LAB 06:23
PROVIDERS: ATTEND Family Medicine
DX: E11.69 Type 2 diabetes mellitus with other specified complication (principal)
CPT/HCPCS: 36415; 80048; 80061; 83036

== ENCOUNTER → 2019-09-04 | Outpatient (CLI) | payer OTHER ==
[2018-06-01 07:55] VITALS: BP 161/90
--- NOTE | 2019-09-04 20:35 | RAD ---
CHEST PA LATERAL Technique: PA and lateral views of the chest were obtained. Clinical History: Dyspnea and productive cough Comparison: None. Findings: The heart and pulmonary vasculature appear within normal limits. There are linear opacities in the left lower lobe. The pleural margins are clear. Impression: Left lower lobe infiltrate could be discoid atelectasis or early pneumonia. Electronically signed by: Prashant Somers III, MD (09/04/2019 8:32 PM) [facility] [id number]
== END | disposition home or self-care (01) ==
LOC: LAB 16:46
PROVIDERS: ATTEND Family Medicine
DX: R91.8 Other nonspecific abnormal finding of lung field (principal); R05 Cough
CPT/HCPCS: 71046

== ENCOUNTER → 2020-02-24 | Outpatient (CLI) | payer OTHER ==
[2018-06-01 07:55] VITALS: BP 161/90
[2020-02-25 01:08] LABS: HEMOGLOBIN A1C 7.5 % (4.8-5.6)
== END | disposition home or self-care (01) ==
LOC: LAB 06:17
PROVIDERS: ATTEND Family Medicine
DX: E11.69 Type 2 diabetes mellitus with other specified complication (principal)
CPT/HCPCS: 36415; 83036

== ENCOUNTER → 2020-08-22 | Outpatient (CLI) | payer OTHER ==
[2018-06-01 07:55] VITALS: BP 161/90
[~2020-08-22] MED LIST changes: +AMLO-186 PO; -AMLO5TAB10 PO
--- NOTE | 2020-08-24 15:37 | RAD ---
DATE: 08/22/2020 9:40 AM EXAM: MAMMO [facility]IZA SCREENING BILATERAL HISTORY: Screening COMPARISON: 04/22/19 Bilateral CC and MLO views of the breasts were performed. Bilateral breast tomosynthesis was performed in CC and MLO projections. This study was interpreted with the benefit of Computerized Aided Detection (CAD). FINDINGS: Breast Density: SCATTERED The breast parenchyma shows scattered fibroglandular densities. Breast parenchyma level B No suspicious masses, microcalcifications or architectural distortion is present to suggest malignancy in either breast. The visualized axillae are unremarkable. IMPRESSION: No mammographic evidence of malignancy. BI-RADS CATEGORY: 1 NEGATIVE RECOMMENDED FOLLOW-UP: 12M 12 MONTH FOLLOW-UP Annual screening mammography is recommended, unless clinically indicated sooner based on symptoms or change in physical exam. PQRS compliance statement: Patient information was entered into a reminder system with a target due date for the next mammogram. Mammography is a sensitive method for finding small breast cancers, but it does not detect them all and is not a substitute for careful clinical examination. A negative mammogram does not negate a clinically suspicious finding and should not result in delay in biopsying a clinically suspicious abnormality. "Our facility is accredited by the [employer] Mammography Program."
== END ==
LOC: MAMMO 09:09
PROVIDERS: ATTEND Family Medicine
DX: Z12.31 Encounter for screening mammogram for malignant neoplasm of breast (principal)
CPT/HCPCS: 77063; 77067

== ENCOUNTER → 2020-08-24 | Outpatient (CLI) | payer OTHER ==
[2018-06-01 07:55] VITALS: BP 161/90
[2020-08-24 07:37] LABS: CALCIUM 9.3 mg/dL (8.5-10.1); GFR 67.8
[2020-08-25 02:08] LABS: HEMOGLOBIN A1C 7.2 % (4.8-5.6)
== END ==
LOC: LAB 06:13
PROVIDERS: ATTEND Family Medicine
DX: E11.9 Type 2 diabetes mellitus without complications (principal)
CPT/HCPCS: 36415; 80048; 83036

== ENCOUNTER → 2021-02-19 | Outpatient (CLI) | payer OTHER ==
[2018-06-01 07:55] VITALS: BP 161/90
[2021-02-19 07:54] LABS: CALCIUM 9.4 mg/dL (8.5-10.1); CREATININE 1.1 mg/dL (0.6-1.0); GFR 60.5; POTASSIUM 4.2 mmol/L (3.5-5.1)
[2021-02-20 00:13] LABS: HEMOGLOBIN A1C 7.6 % (4.8-5.6)
== END ==
LOC: LAB 06:20
PROVIDERS: ATTEND Family Medicine
DX: E11.69 Type 2 diabetes mellitus with other specified complication (principal)
CPT/HCPCS: 36415; 80048; 83036

== ENCOUNTER → 2021-08-30 | Outpatient (CLI) | payer OTHER ==
[2018-06-01 07:55] VITALS: BP 161/90
[2021-08-31 03:09] LABS: HEMOGLOBIN A1C 7.5 % (4.8-5.6)
== END ==
LOC: LAB 06:25
PROVIDERS: ATTEND Family Medicine
DX: E11.69 Type 2 diabetes mellitus with other specified complication (principal)
CPT/HCPCS: 36415; 83036